=== PATIENT | female | born 1995 | race Caucasian/White ===

== ENCOUNTER 2024-03-09 16:11 | Emergency (ER) | payer MEDICAID ==
[~2024-03-09] VITALS: Ht 167.6 cm; Wt 95.0 kg
[2024-03-09 16:43] VITALS: O2SAT 100
[2024-03-09] MEDS ORDERED: CLOT15CR27 TP (17:58)
[2024-03-09 18:15] VITALS: BP 123/73; PULSE 68; RESP 18; TEMP 36.78072; O2SAT 100
== END 2024-03-09 18:18 | disposition home or self-care (01) ==
LOC: ER 16:11
DX: B35.3 Tinea pedis (principal)
CPT/HCPCS: 99282

== ENCOUNTER 2024-03-14 18:57 | Emergency (ER) | payer MEDICAID ==
[~2024-03-14] VITALS: Ht 167.6 cm; Wt 105.0 kg
[~2024-03-14 18:57] MED LIST: CLOT15CR27 TP
[2024-03-14 19:33] VITALS: BP 137/79; PULSE 92; RESP 20; TEMP 98.4; O2SAT 97
[2024-03-14] MEDS ORDERED: ACETAMINOPHEN 325MG TABLET PO NR (23:45)
[2024-03-14] MEDS ORDERED: IBUPROFEN 400MG TABLET PO NR (23:45)
== END 2024-03-15 00:30 | disposition left against medical advice (07) ==
LOC: ER 18:57
DX: M25.511 Pain in right shoulder (principal); F19.90 Other psychoactive substance use, unspecified, uncomplicated
CPT/HCPCS: 73000; 73030; 99284

== ENCOUNTER 2024-07-17 16:24 | Emergency (ER) | payer MEDICAID ==
[~2024-07-17] VITALS: Ht 165.1 cm; Wt 104.0 kg
[2024-07-17 16:27] VITALS: O2SAT 100
[2024-07-17] MEDS: DIPHENHYDRAMINE 12.5MG/5ML UDC PO ONE (21:07)
[2024-07-17] MEDS: KETOROLAC 15MG/ML VIAL IM ONE (21:14)
[2024-07-17] MEDS: METOCLOPRAMIDE HCL 5MG TABLET PO ONE (21:22)
[2024-07-17 22:00] VITALS: BP 124/55; PULSE 73; RESP 16; TEMP 37; O2SAT 99
== END 2024-07-17 22:00 | disposition home or self-care (01) ==
LOC: ER 16:24
DX: R51.9 Headache, unspecified (principal)
CPT/HCPCS: 99283; 96372; J1885; J8597; Q0163

== ENCOUNTER 2024-09-25 16:56 | Emergency (ER) | payer MEDICAID ==
[~2024-09-25] VITALS: Ht 165.1 cm; Wt 100.0 kg
[2024-09-25 17:00] VITALS: O2SAT 98
[2024-09-25 17:13] VITALS: BP 136/82; PULSE 85; RESP 14; TEMP 37; O2SAT 99
[2024-09-25] MEDS: SUMATRIPTAN SUCCINATE 6MG/0.5ML VIAL SUBCUT ONE (18:30)
[2024-09-25] MEDS ORDERED: DIPHENHYDRAMINE 50MG CAPSULE PO ONE (18:45)
[2024-09-25] MEDS: METOCLOPRAMIDE HCL 10MG TABLET PO ONE (18:51)
[2024-09-25] MEDS: DIPHENHYDRAMINE 25MG CAPSULE PO NR (18:51)
[2024-09-25] MEDS ORDERED: RIZA-4 MT (19:42)
== END 2024-09-25 19:51 | disposition home or self-care (01) ==
LOC: ER 16:56
DX: G43.909 Migraine, unspecified, not intractable, without status migrainosus (principal); Z79.899 Other long term (current) drug therapy
CPT/HCPCS: 99283; 96372; Q0163; J8597; J3030

== ENCOUNTER 2025-01-29 15:09 | Emergency (ER) | payer MEDICAID ==
[~2025-01-29] VITALS: Ht 165.1 cm; Wt 108.8 kg
[~2025-01-29 15:09] MED LIST changes: +RIZA-4 MT
[2025-01-29 15:29] VITALS: O2SAT 100
[2025-01-29] MEDS: CYCLOBENZAPRINE 10MG TABLET PO ONE (18:21)
[2025-01-29] MEDS: LIDOCAINE 5% PATCH TOP STA (18:21)
[2025-01-29] MEDS: KETOROLAC 30MG/ML VIAL IM ONE (18:21)
[2025-01-29] MEDS ORDERED: LIDO700A30 TP (20:24)
[2025-01-29] MEDS ORDERED: CYCL10TA21 MT (20:24)
[2025-01-29] MEDS ORDERED: KETO10TA2 MT (20:24)
[2025-01-29] MEDS: TRAMADOL 50MG TABLET PO ONE (20:41)
[2025-01-29 20:47] VITALS: BP 149/77; PULSE 81; RESP 16; TEMP 36.7; O2SAT 100
== END 2025-01-29 20:47 | disposition home or self-care (01) ==
LOC: ER 15:09
DX: M54.9 Dorsalgia, unspecified (principal); Z79.899 Other long term (current) drug therapy
CPT/HCPCS: 81025; 72070; 72100; 96372; 99284; J1885; Z7610